=== PATIENT | female | born 1960 | race Hispanic/Latino ===

== ENCOUNTER 2017-05-15 21:38 | Emergency (ER) | payer OTHER ==
[~2017-05-15] VITALS: Ht 157.5 cm; Wt 76.8 kg
[~2017-05-15 21:38] MED LIST: DOCU-41 PO; HYDR-4003 PO
[2017-05-15 21:41] VITALS: BP 209/96; PULSE 66; RESP 16; O2SAT 98
--- NOTE | 2017-05-15 22:28 | ED.REPORT ---
HPI-Abd Pain F 40 and Over Date of Service May 15, 2017 ED Provider: Dr. Mishra The pt is a 56 y/o female with a hx of DM, HTN, and hyperlipidemia who presents to the ED complaining of a sharp, periumbilical abdominal pain, onset a month ago that worsened yesterday. Her pain is exacerbated after eating. Associated sx include nausea, vomiting, and diarrhea. She denies melena, fever, and cough. Nursing Notes Stated Complaint: UPPER ABDOMINAL PAIN Chief Complaint: Female Abdominal Pain Nursing Notes Reviewed: Yes Allergies: Coded Allergies: No Known Allergies (Unverified , 06/27/16) Scheduled Omeprazole (Omeprazole) 20 Mg Tablet.dr 20 MG PO BID Scheduled PRN Docusate Sodium (Colace) 100 Mg Capsule 100 MG PO BID PRN PRN For Constipation Hydrocodone-Acetaminophen 5-325 mg (Hydrocodone-Acetaminophen 5-325 mg) 1 Each Tablet 1 TABLET PO Q4H PRN PRN For Pain Ondansetron ODT (Ondansetron ODT) 8 Mg Tab.rapdis 8 MG PO QID PRN PRN For Nausea General Time Seen by MD: 22:28 Chief Complaint Abdominal pain Hx Obtained From: Patient Arrived By: Walk-in Sudden in Onset?: No Onset Occurred: More than a week ago... (1 month) Symptom Duration: Since onset Progression since Onset: Gradually worsening Location: : Periumbilical Quality: Sharp Radiation: : Does not radiate Severity: Current: Severe Severity: Maximum: Severe Recent Healthcare: No recent doctor visit Past Medical History Past Medical History Reports: Diabetes mellitus, Hyperlipidemia, Hypertension Past Surgical History None reported. Smoking History Unknown if Ever Smoker Social History Other Social History: , Local resident Ambulatory Status Independent Review of Systems Constitutional: Denies: Fever Respiratory: Denies: Non-productive cough GI: Reports: Abdominal pain, Diarrhea, Nausea, Vomiting, Denies: Melena Complete sys rev & neg: except as marked. Physical Exam Vital Signs Vital Signs (First) Date Time Temp Pulse Resp B/P Pulse Ox O2 Delivery O2 Flow Rate FiO2 05/15/17 21:41 36.7 66 16 209/96 98 Room Air Initial VS: Reviewed Head / Eyes: Atraumatic Neck: Supple, Non-tender, Full range of motion Extremities: Vascular intact, Neuro intact, No swelling, No tenderness Skin: Warm, Dry, No cyanosis Neurologic: Alert, Oriented, Nonfocal General/Constitutional: Awake, Alert, Cooperative Distress / Hydration: Positive: Distress mild Respiratory / Chest: Atraumatic, Breath sounds NL, Breath sounds = bilat, No respiratory distress, No rales, No rhonchi, No wheezing Cardiovascular: Heart rate NL, Regular rhythm, Heart sounds NL, No gallop, No murmurs, No rubs Abdomen: Atraumatic, Soft, No guarding, No rebound Tenderness/Guarding/Rebound: Positive: Tender periumbilical Back: Atraumatic, Full range of motion, Painless range of motion, Non-tender Interpretation & Diagnostics Lab Results Interpretation Result Diagram: 05/15/17 2255 05/15/17 2255 Test 05/15/17 22:39 05/15/17 22:55 Urine Color Straw (YELLOW) Urine Appearance Clear (CLEAR,HAZY) Urine pH 5.5 (5.0-8.0) Urine Specific [place] 1.007 (1.003-1.035) Urine Protein Negativemg/dL (NEG,TRACE) Urine Glucose (UA) 100mg/dL (NEGATIVE) Urine Ketones Negativemg/dL (NEGATIVE) Urine Occult Blood Trace (NEGATIVE) Urine Nitrite Negative (NEGATIVE) Urine Bilirubin Negative (NEGATIVE) Urine Urobilinogen Normalmg/dL (NORMAL) Urine Leukocyte Esterase Negative (NEGATIVE) Urine RBC 0-2/hpf (0-2) Urine WBC 0-5/hpf (0-5) Urine Epithelial Cells Occasional/hpf (NONE-MOD) Urine Crystals None seen (NONE SEEN) Urine Bacteria None/hpf (NONE-FEW) Urine Hyaline Casts None/lpf (NONE) Urine Granular Casts None seen (NONE SEEN) Urine Waxy Casts None seen (NONE SEEN) Urine Red Blood Cell Casts None seen (NONE SEEN) Urine White Blood Cell Casts None seen (NONE SEEN) Urine Mucus None seen (None Seen) Urine Trichomonas None seen (NONE SEEN) Urine Yeast None (NONE SEEN) Urinalysis Comment None Urine Culture Reflexed Not indicated White Blood Count 9.7th/mm3 (3.8-10.1) Red Blood Count 5.46mil/mm3 (3.90-5.20) Hemoglobin 14.6g/dL (12.0-15.6) Hematocrit 42.4% (35.0-46.0) Mean Corpuscular Volume 77.7fL (81-100) Mean Corpuscular Hemoglobin 26.7pg (27.0-35.0) Mean Corpuscular Hemoglobin Concent 34.4% (32.0-37.0) Red Cell Distribution Width 13.4% (12.3-15.4) Platelet Count 381bil/L (150-400) Neutrophils (%) (Auto) 69.7% (40-74) Lymphocytes (%) (Auto) 22.2% (14-46) Monocytes (%) (Auto) 6.5% (4-12) Eosinophils (%) (Auto) 1.0% (0-5) Basophils (%) (Auto) 0.3% (0-3) Prothrombin Time 9.9sec (8.1-12.5) Prothromb Time International Ratio 0.93ratio Sodium Level 134mEq/L (134-144) Potassium Level 4.1mEq/L (3.5-5.2) Chloride Level 94mEq/L (97-108) Carbon Dioxide Level 23mmol/L (18-29) Blood Urea Nitrogen 15mg/dL (6-24) Creatinine 0.67mg/dL (0.57-1.00) Estimat Glomerular Filtration Rate 131mL/min (>59) Glucose Level 249mg/dL (60-99) Lactic Acid Level 1.9mmol/L (0.4-2.0) Calcium Level 9.6mg/dL (8.5-10.1) Magnesium Level 1.7mg/dL (1.6-2.6) Total Bilirubin 0.3mg/dL (0.0-1.2) Aspartate Amino Transf (AST/SGOT) 17U/L (0-50) Alanine Aminotransferase (ALT/SGPT) 18U/L (0-32) Alkaline Phosphatase 116U/L (25-150) Total Protein 8.2g/dL (6.4-8.4) Albumin 4.3g/dL (3.4-5.0) Lipase 22U/L (13-60) Human Chorionic Gonadotropin, Qual 1.48 (Negative) ECG Interpretation ECG Interpretation: Normal sinus rhythm. Rate 71. LVH Time: 22:45 Interpreted by: ED physician CT Abd / Pelvis Interpretation Impression: Irregular nodular gastric wall thickening compatible with gastropathy. Gastritis or neoplasm not excluded. Endoscopic correlation advised. Fluid-filled distention of the endometrial cavity. Enhancing nodule noted along the endometrial wall. Follow-up is advised. Non-emergent incidental finding unrelated to the primary process found in this case. Follow-up recommended. Signed by Dr. Luzma Rodriguez 05/16/17 01:18 Study type: Abdominal CT IV contrast Interpretation / Wet Read by: Interpret - Radiologist Re-Eval/Medical Decision Med Decision/Clinical Course 56-year-old with diabetes presents with three days of abdominal pain worsening over time, and a moderately tender belly. CT just shows gastritis and no other significant findings. Begun with omeprazole twice a day. Follow-up with PCP and with GI. She had an incidental finding of fluid filled endometrium with a nonenhancing prominence along the uterine wall. Needs to be evaluated further to exclude endometrial cancer. Follow-up with OPERATING ROOM RN. Source of Hx: Old records Re-Evaluation/Progress : Time of Eval: 01:44 Re-Evaluation/Progress Note: Rechecked pt. Discussed lab results, imaging results, diagnosis and plan to discharge. Pt understands and agrees with the plan. F/U instruction and RTER warning given. All questions addressed. Counseled Regarding: Diagnosis, Lab results, Need for follow-up, When/why to return to ED Discharge & Departure Primary Impression: Gastritis Gastritis type: unspecified gastritis Chronicity: acute Gastritis bleeding : without bleeding Qualified Code: K29.00 - Acute gastritis without bleeding Additional Impression: Fluid in endometrial cavity Disposition: Home Discharge Condition All VS Reviewed: Yes Condition: Stable Patient Instructions: Gastritis (ED) Additional Instructions: Thank you for entrusting us with your care today. You CT scan shows inflammation of the stomach lining. Further evaluation is required. Please follow up with your primary care provider for further evaluation. You will also need to see a bus and trolley inspecting dispatcher for an endoscopy. Do not eat acidic foods. Avoid alcohol and caffeine. Do not use ibuprofen or aspirin. Tylenol is acceptable. Take omeprazole as prescribed, one tablet twice daily. You also need to follow up with your doctor or OPERATING ROOM RN Return to the emergency department in case of new or worsening symptoms. Sharonda por confiarnos mcdaniel cuidado hoy. La tomografa computarizada muestra inflamacin del revestimiento del estmago. Se requiere shannon evaluacin adicional. Por favor, siga con mcdaniel proveedor de atencin primaria para shannon evaluacin ms detallada. Tambin necesitar desean a un gastroenterlogo para shannon endoscopia. No coma alimentos cidos. Evite el alcohol y la cafena. No use ibuprofeno ni aspirina. Tylenol es aceptable. [place] omeprazol segn lo prescrito, shannon tableta dos veces al da. Usted tambin necesita hacer un seguimiento con mcdaniel mdico u obstetra / ginec logo Regrese al servicio de urgencias en duong de sntomas nuevos o que empeoren. Referrals: [facility] (PCP) Scribe Attestation Portions of this note were transcribed by Demarco Almeida. I,, personally performed the history,physical exam and medical decision-making;I reviewed and confirmed the accuracy of the information in the transcribed note. Signed by Carolann Smith. 05/15/17 Juan Jose Mishra MD May 15, 2017 22:28 Demarco Almeida May 15, 2017 22:32
[2017-05-15] MEDS ORDERED: 0.9% Sodium Chloride 1,000 ML IV ONE (22:33)
[2017-05-15 22:55] LABS: APPEARANCE,URINE CLEAR (CLEAR,HAZY); COLOR,URINE STRAW (YELLOW); PH,URINE 5.5 (5.0-8.0)
[2017-05-15 22:56] LABS: OCCULT BLOOD,URINE TRACE (NEGATIVE); UROBILINOGEN,URINE NORMAL (NORMAL)
[2017-05-15 23:06] LABS: BASOPHILS % (AUTO) 0.3 % (0-3); MONOCYTES % (AUTO) 6.5 % (4-12); Mean Corpuscular Hemoglobin 26.7 pg (27.0-35.0); Mean Corpuscular Volume 77.7 fL (81-100); NEUTROPHILS % (AUTO) 69.7 % (40-74); Platelet Count 381 bil/L (150-400)
[2017-05-15] MEDS ORDERED: HYDROmorphone 1 mg/mL Inj IVPUSH PRN (23:10)
[2017-05-15] MEDS ORDERED: Ondansetron 2 mg/mL 2 mL Inj IVPUSH ONE (23:10)
[2017-05-15] MEDS ORDERED: Pantoprazole 4 mg/mL 10 mL Inj IVPUSH ONE (23:10)
[2017-05-15 23:30] LABS: INR 0.93 ratio
[2017-05-15 23:41] LABS: Magnesium 1.7 mg/dL (1.6-2.6)
[2017-05-16] MEDS ORDERED: OMEP20TA86 PO (01:49)
[2017-05-16] MEDS ORDERED: ONDA8TAB10 PO (01:50)
[2017-05-16 02:41] VITALS: BP 134/89; PULSE 81; RESP 20; O2SAT 97
--- NOTE | 2017-05-16 09:15 | DRSVH ---
PROCEDURE: CT ABDOMEN AND PELVIS WITH CONTRAST ([id number]) INDICATIONS: 3 days epigastric pain, worsening TECHNIQUE: After the administration of oral and intravenous contrast, 5 mm thick sections acquired from the diap hragms to the symphysis. 5 mm thick coronal and sagittal reformats were performed. For radiation do se reduction, the following was used: automated exposure control, adjustment of mA and/or kV accordi ng to patient size. COMPARISON: [facility] Ultrasound, US, US PELVIC+TRANSVAG, 04/23/2017, 8:29. FINDINGS: Image quality: Excellent. ABDOMEN: Lung bases: There is mild dependent atelectasis. Heart size is normal. There is mild concentric wa ll thickening of the visualized distal esophagus. Solid organs: Liver and spleen are normal in size and enhancement. Gallbladder appears within jose l limits without calcified gallstones. Biliary system is non-dilated. Pancreas enhances normally. No adrenal nodules. Kidneys demonstrate no hydronephrosis. There is small hypodensities in the kidn eys bilaterally which are too small to characterize but likely represent cysts. Peritoneum and bowel: There is mild lobulated wall thickening of the gastric wall along the greater c urvature of the stomach or Small and large bowel loops are normal in caliber and wall thickness. The appendix is normal in appearance. No free fluid or air. Nodes and vessels: No retroperitoneal or mesenteric adenopathy. Aorta and inferior vena cava are no rmal in caliber. Miscellaneous: No ventral hernias. PELVIS: Genitourinary: Bladder wall thickness is normal. There is fluid distention of the endometrium with enhancement along the endometrial wall. There is also a small enhancing nodule extending into the en dometrial canal measuring approximately 6 mm the Miscellaneous: No inguinal hernias or adenopathy. Bones: No suspicious bony lesions. No vertebral body compression fractures. IMPRESSION: 1. Mild lobulated gastric wall thickening is nonspecific and the differential includes gastritis as well as an infiltrative neoplasm. Recommend correlation with endoscopy. 2. Fluid distention of the endometrium with enhancement of the endometrial martinez and a small nodule extending into inpatient. Findings are again suspicious for an endometrial mass and further evaluati on is recommended with hysteroscopy. Dictated by: Royal Lynch M.D. on 05/16/2017 at 9:07 Approved by: Royal Lynch M.D. on 05/16/2017 at 9:13
[2017-05-25] MEDS ORDERED: GLIP10TA10 PO (13:11)
[2017-05-25] MEDS ORDERED: PRAV20TA2 PO (13:11)
[2017-05-25] MEDS ORDERED: OMEP20TA86 PO (13:11)
[2017-05-25] MEDS ORDERED: ASPI-973 PO (13:11)
[2017-05-25] MEDS ORDERED: LISI40TA PO (13:11)
[2017-05-25] MEDS ORDERED: HYG25 PO (13:11)
[2017-05-25] MEDS ORDERED: METF1000 PO (13:11)
[2017-05-25] MEDS ORDERED: RANI150T11 PO (13:11)
[2017-05-25] MEDS ORDERED: CHOL200025 PO (13:11)
== END 2017-05-16 02:35 | disposition home or self-care (01) ==
LOC: SED 21:38
DX: K29.00 Acute gastritis without bleeding (principal); N85.8 Other specified noninflammatory disorders of uterus; E11.9 Type 2 diabetes mellitus without complications; I10 Essential (primary) hypertension; E78.5 Hyperlipidemia, unspecified
CPT/HCPCS: 36415; 74177; 80053; 81000; 81025; 83605; 83690; 83735; 84703; 85025; 85610; 93005; 96361; 96374; 96375; 99285; J1170; J2405; J7030; Q9967; S0164

== ENCOUNTER → 2017-06-01 | Day surgery (SDC) | payer OTHER ==
--- NOTE | 2017-05-26 10:32 | PCM.ANEPRE ---
Anesthesia Pre-Op Review Reason for Review: elevated hgb A1c Anesthesia Recommendations: Proceed with Procedure Additional Comments 56 yo woman for hysteroscopy d and c with A1C of 8.6, suggesting avg blood sugar of 200. Discussed wit Dr Villa, who feels patient would like to proceed to rule out cancer. Ok to proceed with usual DOS evaluation. Chart Reviewed by: Kee Goodson MD, MD May 26, 2017 10:32
[2017-06-01] VITALS (8 sets, daily range): BP systolic 137–166; BP diastolic 70–88; PULSE 78–91; RESP 5–17; O2SAT 96–99
[~2017-06-01] VITALS: Ht 144.8 cm; Wt 77.1 kg
[~2017-06-01] MED LIST changes: +ASPI-973 PO; +CHOL200025 PO; +Dexamethasone 4 mg/mL Inj IVPUSH PRN; +EPHEDrine Sulfate 50 mg/mL Inj IVPUSH PRN; +GLIP10TA10 PO; +HYDROmorphone 1 mg/mL Inj IVPUSH PRN; +HYG25 PO; +LISI40TA PO; +Lactated Ringer's 1,000 ML IV ONE; +Lactated Ringer's 1,000 ML IV SCH; +Lactated Ringer's 500 ML IV PRN; +METF1000 PO; +MetoCLOpramide 5 mg/mL 2 mL Inj IVPUSH PRN; +OMEP20TA86 PO; +ONDA8TAB10 PO; +Ondansetron 2 mg/mL 2 mL Inj IVPUSH PRN; +Ondansetron 2 mg/mL 2 mL Inj ONE; +PRAV20TA2 PO; +Phenylephrine 10,000 mCg/mL Inj IVPUSH PRN; +Propofol 10,000 mCg/mL 20 mL Inj ONE; +RANI150T11 PO; +fentaNYL-PF 50 mCg/mL 2 mL Inj IVPUSH PRN; +fentaNYL-PF 50 mCg/mL 2 mL Inj ONE; +oxyCODONE-Acetamin 5-325 mg Tablet PO PRN
--- NOTE | 2017-06-01 14:59 | PCM.HPANE ---
Patient Data Date of Service: Jun 01, 2017 Surgeon Admitting Provider: Attending Provider:Marsha Villa MD Primary Care Physician:Oumou Pascual DO Other Provider:Claudia Crawford Anesthesia Reason for Visit Post-Menopausal Bleeding Ht/WT & BMI Height (Feet): 4 Height (Inches): 9.00 Weight (Kilograms): 77.100 Body Mass Index 36.00 Allergies Coded Allergies: No Known Allergies (Unverified , 05/25/17) Past Anesthesia History Anesthesia History: Denies:: Abnormal Airway, Anesthesia Reactions (anes for delivery of third baby only), Difficult Intubation, Fam Anesthesia Reaction, Malignant Hyperthermia Diabetes History Hx Diabetes?: Yes Type of Diabetes: Type II Glycemic Control: Oral Medication Current Bedside Blood Glucose: 110 MRSA MRSA: No Medications Hypertension Medication: Yes Home Meds Incl Beta Parker: No Active Scripts Ondansetron ODT 8 Mg Tab.rapdis8 Mg PO QID PRN For Nausea #20 TABLET Prov:Juan Jose Mishra MD 05/16/17 Omeprazole 20 Mg Tablet.dr20 Mg PO BID #120 TABLET Prov:Juan Jose Mishra MD 05/16/17 Hydrocodone-Acetaminophen 5-325 mg 1 Each Tablet1 Tablet PO Q4H PRN For Pain # 10 TABLET Ref 0 Prov:Trenton Vicente MD 06/27/16 Docusate Sodium (Colace)100 Mg [id number] Mg PO BID PRN For Constipation #20 CAPSULE Ref 0 Prov:Trenton Vicente MD 06/27/16 Reported Medications Ranitidine (Zantac)150 Mg [id number] Mg PO BID 05/25/17 Cholecalciferol (Vitamin D3) (Vitamin D3)2,000 Unit Tablet2,000 Unit PO DAILY 05/25/17 Pravastatin 20 Mg Fptcdi63 Mg PO DAILY Ref 0 05/25/17 Omeprazole 20 Mg Tablet.dr20 Mg PO BID Ref 0 05/25/17 Metformin (Glucophage)1,000 Mg Tablet1,000 Mg PO BID Ref 0 05/25/17 Lisinopril 40 Mg Umazqb81 Mg PO DAILY 30 Days Ref 0 05/25/17 Glipizide 10 Mg Tablet5 Mg PO BID 30 Days 05/25/17 Chlorthalidone 25 Mg Hojtmk73 Mg PO DAILY #30 TABLET 05/25/17 Aspirin 81 Mg Tugqqd94 Mg PO DAILY Ref 0 05/25/17 History History of ENT Problems?: No HEENT History: Denies:: Abnormal Airway Cataracts Difficult Intubation Dysphagia Glaucoma Hearing Problem Sinus Problem TMJ Denture Type: None Teeth Condition: Within Normal Limits Hx of Heart Problems?: Yes Cardiovascular History: Positive for:: Hypertension Denies:: AICD Abdominal Aortic Aneurism Chest Pain Congestive Heart Failure Coronary Artery Disease Edema Heart Murmur Irregular Heartbeat Pacemaker Peripheral Vascular Rheumatic Fever Hx of Respiratory Problem?: Yes Respiratory History: Positive for:: Tuberculosis (treated a couple of years ago, repeated test was "fine") Denies:: Asthma COPD Emphysema Oxygen Administration Pneumonia Use of C-PAP Machine Hx Neurologic Problems?: No Neurological History: Denies:: CVA Dementia Headaches Multiple Sclerosis Parkinson's Disease Seizures TIA Hx of GI Problems?: Yes Gastrointestinal History: Positive for:: Gastroesphageal Reflux Other History/Comment well controlled. Food related. Hx of Problems?: No Genitourinary History: Denies:: Kidney Stones Urinary Tract Infection Female Hx: Denies:: Currently (post menopausal) Problems with Breasts? Skin History: Denies:: History Skin Disorders? Pressure Ulcers Hx Musculoskeletal Problems?: No Musculoskeletal History: Denies:: Back Injury Fibromyalgia Joint Replacement Musculoskeletal Trauma Myasthenia Gravis Osteoarthritis Hx of Psycho/Social Problems?: No Psycho Social History: Denies:: Anxiety Hx Depression Hx Surgeries?: No Hx Any Other Health Problems?: Yes Other History: Denies:: Thyroid Disease History Blood Transfusions: Denies:: Accept Blood Products? Blood Transfusions (pt is jehovahs witness, refuses any blood) Hx Diabetes: YesBedside Blood Glucose: 110 Other History/Comment pt refuses blood product. accepts cell fraction in emergency. Hx Alcohol Use: NoHx Substance Use: No Smoking Status: Unknown if Ever Smoker Have You Smoked inLast 12 mo: No Stop/Bang Treated for Sleep Apnea?: No Do You Have a CPAP Machine?: No S-Snoring: Do You Snore Loudly: Yes T-Tired: feel tired, fatigued: No O-Obsered: Observed not breath: No P-Blood Pressure: treated: Yes B- Body Mass Index > 35 kg/m2: No A- Age over 50: Yes N- Neck Large Circumference: No G- Gender Male: No DIANE Total Score: 3 DIANE Risk Assessment: Low Risk, <3 Yes Risk Assessment Category Category 1A: Patient has history of documented sleep apnea, and HAS NOT received any narcotic, sedative or anesthesia administration during this stay. Category 1B: Patient has history of documented sleep apnea, and HAS received any narcotic , sedative or anesthesia administration during this stay Category 2: Patient has SUSPECTED Obstructive Sleep Apnea, and HAS received any narcotic , sedative or anesthesia administration during this stay. Category 3: Patient has SUSPECTED Obstructive Sleep Apnea and HAS NOT received narcotic, sedative or anesthesia administration during this stay. Category 4: Outpatient in Procedural Areas with known sleep apnea or who screen positive for High Risk via the STOP/BANG questionnaire. Exam Exam Vital Signs Vital Signs Date Time Temp Pulse Resp B/P Pulse Ox O2 Delivery O2 Flow Rate FiO2 06/01/17 11:14 36.1 86 16 158/88 97 Room Air General Appearance: Alert, Oriented X3 HEENT/AIRWAY: MP 2 Lungs: Clear to Auscultation Heart: Exam Unremarkable Meds/Labs/Diagnostics Admission Meds Current Medications Lactated Ringer's (Lr) 1,000 ml @ ud STK-MED ONCE IV Last administered on 06/01t 12:02; Start 06/01/17 at 12:02; Stop 06/01/17 at 12:03; Status DC Bedside Blood Glucose: 110 Plan Impression Patient chart reviewed, patient interviewed and anesthestic plan with risks, benefits, and alternatives discussed, and informed consent obtained. NPO per Anesth. Guidelines: Yes ASA Physical Status: ASA2 Mod Systemic Disease Anesthetic Plan: GA Bene/Risks/Altern/Consents: Yes HP Complete Prior to Induction: Yes Bryon Capone MD Jun 01, 2017 14:59
--- NOTE | 2017-06-01 15:53 | PCM.DIGYN ---
Surgical Discharge Instruction Dates of Hospitalization Date of Hospital Admission Providers Admitting Physician: Primary Care Physician: Oumou Pascual DO Attending Physician: Marsha Villa MD Diagnosis at Time of Discharge Diagnosis at time of discharge postmenopausal bleeding uterine submucosal fibroid cervical polyps s/p hysteroscopy myomectiomy D&C cervical polypectomy Post-operative diagnosis postmenopausal bleeding uterine submucosal fibroid cervical polyps s/p hysteroscopy myomectiomy D&C cervical polypectomy Problems: Diet Discharge Diet: No restrictions Activity Discharge Activity-General: Try not to overdue, Be up and about, Balance rest and activity, Activity as pain allows, No driving while taking narcotic Dressing and Incisional Care Hygiene: May shower, NO bathtub, hot tub or whirlpool Additional Instructions Discharge Instructions Please call office if heavy vaginal bleeding, severe abdominal pain, foul smelling discharge, fever more than 100.4 or short of breath Please follow up in office 2 weeks after procedure Follow Up Plan Follow Up Plan 2 weeks follow up in office with Dr Villa Follow-up Provider (F9): Marsha Villa MD Follow-up appointment: Weeks (2) Call your provider for: Fever, Chills, Shortness of breath, Vomitting, Heavy vaginal bleeding, Increasing pain Marsha Villa MD Jun 01, 2017 15:53
--- NOTE | 2017-06-01 16:10 | DIS ---
[address] [address] DISCHARGE SUMMARY PATIENT: BRENDON MUHAMMAD : 1960 MR#: [id number] ADMIT: 06/01/2017 JOB ID: [id number] DIS: HISTORY OF PRESENT ILLNESS: This is a 56-year-old female. Came in today for a scheduled hysteroscopy, D and C for postmenopausal bleeding. The procedure was not complicated. PLAN: To discharge patient home today when she is able to tolerate her pain, can void, and can ambulate. The patient will follow up in the office two weeks after the procedure. She is instructed that if there is heavy vaginal bleeding, severe abdominal pain, foul-smelling discharge, fever more than 100.4, she will call the office or go to the ED for evaluation. Motrin 600 mg #30 pills and Percocet 5/325 #40 pills prescribed for pain.
--- NOTE | 2017-06-01 16:24 | OP ---
[address] [address] OPERATIVE REPORT PATIENT: BRENDON MUHAMMAD : 1960 MR#: [id number] ADMIT: 06/01/2017 JOB ID: [id number] DATE OF SURGERY: 06/01/2017 SURGEON: Marsha Villa MD. PROCEDURE: Operative hysteroscopy with uterine submucosa myomectomy, dilatation and curettage, and cervical polypectomy. PREOPERATIVE DIAGNOSIS(ES): A 56-year-old female, postmenopausal bleeding. POSTOPERATIVE DIAGNOSIS(ES): A 56-year-old female, postmenopausal bleeding. INDICATION OF THE PROCEDURE: A 56-year-old female, postmenopausal bleeding. A 56-year-old female. She has had episodes of heavy vaginal bleeding after postmenopause, and ultrasound showed there was 2+ cm intrauterine mass. In office, endometrium biopsy was performed and showed inactive endometrium. No malignancy. Based on her symptoms and ultrasound findings, plan for hysteroscopy for further evaluation and possible also D and C, or myomectomy. Discussed with the patient the plan. Discussed with patient the possible risk of infection, bleeding, perforation of the uterus, injury to the uterus and organs around the uterus including but not limited to bladder, ureters, major vessels, nerves, and bowels. Informed consent signed. Patient is Jehovah Witness and she signed refusal form for blood transfusion but agreed for component transfusion if life-threatening situation. PROCEDURE IN DETAIL: The patient was transferred to operating room. After anesthesia was noted to be adequate, she was placed in dorsal lithotomy position. She was prepared and draped in normal sterile fashion. A straight cath was done before the procedure and noticed 50 cc of urine output. Pelvic examination was done under anesthesia and noticed anteverted uterus, normal size. A speculum inserted to vagina to expose the cervix. The cervix was grasped by single-tooth tenaculum. The cervix was gently dilated to 7 mm. At this time, the MyoSure scope inserted for evaluation. There was a submucosal fibroid noticed about 3 x 3 x 2 cm, category zero, mostly protruding to the uterine cavity. Then, the uterine fibroid was removed by regular size MyoSure without difficulty. After the removing of the fibroid, the fluid deficit noticed is 570. The uterine cavity was re-evaluated after the myomectomy and no residual pathology was noticed. At this time, the hysteroscopy scope removed from uterine cavity. It was noticed that there was a small polyp on her cervix about 0.5 x 0.5 cm removed with ring forceps without difficulty. Hemostasis confirmed after the procedure. The patient tolerated the procedure well. All instrument, needles, laps and gauzes counted correct twice. All specimens sent for pathology. The IV fluid given during the procedure was 500 cc. Blood loss 50 cc. The patient was transferred to recovery room in stable condition.
--- NOTE | 2017-06-01 16:54 | PCM.ANEP1 ---
Post Anesthesia PACU Phase 1 Assessment Vital Signs Vital Signs Date Time Temp Pulse Resp B/P Pulse Ox O2 Delivery O2 Flow Rate FiO2 06/01/17 16:05 36.3 79 15 166/85 97 Room Air 06/01/17 16:01 84 16 137/75 97 Room Air 06/01/17 15:50 85 17 150/88 96 Room Air 06/01/17 15:45 91 14 138/81 97 Room Air 06/01/17 15:40 82 5 137/82 99 Simple Mask 10 06/01/17 15:35 37.3 85 16 150/83 99 Simple Mask 10 06/01/17 11:14 36.1 86 16 158/88 97 Room Air Anesthetic Administered: GA Level of Alertness: Awake, talking Pain: No Nausea or Vomiting: No CV Function & Hydration Stable: Yes Airway Device: Oxygen Delivery: Room Air Lungs: Clear to Auscultation PACU Phase 2 Assessment Complications: No Follow up Care: N/A Patient Instructions Provided: N/A Bryon Capone MD Jun 01, 2017 16:54
--- NOTE | 2017-06-03 17:34 | PATH ---
SURGICAL PATHOLOGY Attending Physician:Marsha Villa MD CASE STATUS: Signed Out PATIENT NAME: BRENDON MUHAMMAD PID: [id number] : 1960 DATE COLLECTED:06/01/2017 23:45 SPECIMEN: 1: Cervix, Biopsy 2: Uterus, Fibroid (separate surgical procedure) CLINICAL HISTORY: PORTMENOPAUSAL BLEEDING 1). CERVICAL POLYP 2). SUBMUCOSAL FIBROID FINAL DIAGNOSIS: 1.CERVICAL POLYP, EXCISION: - ENDOCERVICAL POLYP WITH FOCUS OF EROSION, SQUAMOUS METAPLASIA, MILD CHRONIC ACTIVE INFLAMMATION, AND REACTIVE CHANGES. - No evidence of dysplasia and malignancy. 2.SUBMUCOSAL FIBROID, BIOPSY: - MULTIPLE FRAGMENTS OF INACTIVE/WEAKLY PROLIFERATIVE ENDOMETRIUM WITH FEATURES SUGGESTIVE OF ENDOMETRIAL POLYP. - No evidence of atypical hyperplasia and malignancy. ICD10 N95.0 NOTE: As part of a routine water quality assistant, ambulatory services representative slides for part 2 of this case were also reviewed by Dr. Fuentes, who agrees with the above interpretation. GROSS DESCRIPTION: Received two formalin-filled containers, each labeled with the patient's name. 1. Received in formalin, labeled with the patient's name and "cervical polyp"; however, paperwork designated as "cervical polyp", is one fragment of rasmussen firm tissue measuring 0.9 x 0.5 x 0.2 cm. The fragment is totally submitted in cassette 1A. 2. Received in formalin, labeled with the patient's name and "mucosal fibroid" is one fragment of pink-rasmussen, firm tissue measuring 2.4 x 1.0 x 0.3 cm, serially sectioned and totally submitted in cassette 2A. As well are multiple fragments of rasmussen mucoid tissue measuring 12.5 x 3.0 x 0.5 cm in aggregate. The fragments are totally submitted in cassettes 2B-2G. [id number]) MICRO DESCRIPTION: Histologic sections from part 2, designated submucosal fibroid, demonstrate fragments of inactive/weakly proliferative endometrium with few dilated glands. Interspersed stroma has thick-walled blood vessels are identified, suggestive of endometrial polyp. ICD-9 CODES: CPT CODES: 1: 14641 2: 08245 Electronically Signed Out Dick Link MD [facility] [address], [place] [address] Technical component performed at [facility], [address], [place], [address]
== END | disposition home or self-care (01) ==
LOC: SAS 10:43
PROVIDERS: ATTEND Obstetrics & Gynecology
DX: N84.1 Polyp of cervix uteri (principal); N95.0 Postmenopausal bleeding; I10 Essential (primary) hypertension; E11.9 Type 2 diabetes mellitus without complications; R89.6 Abnormal cytological findings in specimens from other organs, systems and tissues; Z79.82 Long term (current) use of aspirin; Z79.84 Long term (current) use of oral hypoglycemic drugs
CPT/HCPCS: 36415; 58558; 88305; J2405; J2704; J3010; J7120